=== PATIENT | male | born 1950 | race Caucasian/White ===

== ENCOUNTER → 2016-06-23 | Outpatient (CLI) | payer OTHER ==
[2016-06-23 11:12] LABS: Bilirubin, Delta 0.4 mg/dL (0.0-0.2); Total Bilirubin 0.6 mg/dL (0.2-1.3); Total Protein 7.9 g/dL (6.3-8.2)
== END | disposition home or self-care (01) ==
LOC: LABWHC1 10:41
DX: K75.81 Nonalcoholic steatohepatitis (NASH) (principal)
CPT/HCPCS: 36415; 80076

== ENCOUNTER → 2016-07-27 | Outpatient (CLI) | payer OTHER ==
[2016-07-27 10:07] LABS: Basophils # (A) 0.1 k/uL (0-0.2); Basophils % (A) 1 %; CH 31.2; CHCM 33.3; Eosinophils # (A) 0.4 k/uL (0-0.7); Eosinophils % (A) 5 %; HCT 46.2 % (39.0-53.0); HDW 2.46; HGB 15.1 gm/dL (13.0-17.5); Luc # (Auto) 0.22; Luc % (Auto) 3; Lymphocytes # (A) 2.2 k/uL (1.0-4.8); Lymphocytes % (A) 29 %; MCH 30.7 pg (25.0-35.0); MCHC 32.6 g/dL (31.0-37.0); MCV 94.3 fL (80.0-100.0); Mean Platelet Volume 7.4; Monocytes # (A) 0.6 k/uL (0-1.0); Monocytes % (A) 8 %; Neutrophils # (A) 4.1 k/uL (1.3-7.7); Neutrophils % (A) 54 %; RDW 13.3 % (11.5-15.5); WBC 7.5 k/uL (3.8-10.6); WBC (Perox) 7.54
[2016-07-27 10:28] LABS: Magnesium 2.1 mg/dL (1.6-2.3); Uric Acid 5.4 mg/dL (3.5-8.5)
[2016-07-27 11:58] LABS: Hemoglobin A1C 5.8 % (4.2-6.1)
== END | disposition home or self-care (01) ==
LOC: LABWHC1 09:39
PROVIDERS: ATTEND Internal Medicine
DX: E78.00 Pure hypercholesterolemia, unspecified (principal); I10 Essential (primary) hypertension
CPT/HCPCS: 36415; 80061; 82550; 83036; 83735; 84439; 84443; 84550; 85025

== ENCOUNTER → 2017-01-04 | Outpatient (CLI) | payer OTHER ==
[2017-01-04 09:38] LABS: Bilirubin, Delta 0.2 mg/dL (0.0-0.2); Total Bilirubin 0.5 mg/dL (0.2-1.3); Total Protein 7.9 g/dL (6.3-8.2)
== END | disposition home or self-care (01) ==
LOC: LABWHC1 09:07
DX: K75.81 Nonalcoholic steatohepatitis (NASH) (principal)
CPT/HCPCS: 36415; 80076

== ENCOUNTER → 2017-07-06 | Outpatient (CLI) | payer MEDICARE ==
[2017-07-06 15:31] LABS: Albumin 4.3 g/dL (3.5-5.0); Bilirubin, Delta 0.2 mg/dL (0.0-0.2); Bilirubin,Unconjugated 0.1 mg/dL (0.0-1.1); Total Bilirubin 0.3 mg/dL (0.2-1.3); Total Protein 7.4 g/dL (6.3-8.2)
== END | disposition home or self-care (01) ==
LOC: LABWHC1 14:37
DX: K75.81 Nonalcoholic steatohepatitis (NASH) (principal)
CPT/HCPCS: 36415; 80076

== ENCOUNTER → 2017-08-02 | Outpatient (CLI) | payer MEDICARE ==
[2017-08-02 10:33] LABS: HCT 44.2 % (39.0-53.0); HGB 14.5 gm/dL (13.0-17.5); MCH 30.1 pg (25.0-35.0); MCHC 32.8 g/dL (31.0-37.0); MCV 91.6 fL (80.0-100.0); Platelet Count 233 k/uL (150-450); RBC 4.83 m/uL (4.30-5.90); RDW 13.5 % (11.5-15.5); WBC 7.6 k/uL (3.8-10.6)
[2017-08-02 11:36] LABS: ALT 90 U/L (21-72); AST 60 U/L (17-59); Albumin 4.4 g/dL (3.5-5.0); Alkaline Phosphatase 75 U/L (38-126); Anion Gap 12 mmol/L; Blood Urea Nitrogen 27 mg/dL (9-20); Calcium 9.9 mg/dL (8.4-10.2); Carbon Dioxide 27 mmol/L (22-30); Chloride 101 mmol/L (98-107); Glucose 93 mg/dL (74-99); Potassium 4.8 mmol/L (3.5-5.1); Sodium 140 mmol/L (137-145); Total Bilirubin 0.5 mg/dL (0.2-1.3); Total Protein 7.5 g/dL (6.3-8.2)
== END ==
LOC: LABPAT 10:04
PROVIDERS: ATTEND Podiatrist Foot & Ankle Surgery
DX: Z01.812 Encounter for preprocedural laboratory examination (principal)
CPT/HCPCS: 36415; 80053; 85027

== ENCOUNTER 2017-08-09 12:12 | Day surgery (SDC) | payer MEDICARE ==
[2017-08-03 15:49] VITALS: BMI 29.6
[~2017-08-09 12:12] MED LIST: HYDROmorphone 0.5 MG/0.5 ML SYRINGE IVP PRN; LACTATED RINGERS 1,000 ML IV SCH; MORPHINE SULFATE 4 MG/ML SYRINGE IV PRN; ONDANSETRON 4 MG/2 ML VIAL IVP PRN; Pre Op ABX Message 1 EACH MISC MISCELLANE ONE
[2017-08-09] MEDS ORDERED: LIDOCAINE 1% 20 ML VIAL (10MG/ML) FOR IV START INTRADERMA ONE (12:55)
[2017-08-09 13:04] VITALS: RESP 16; TEMP 97.9
[2017-08-09] MEDS ORDERED: LIDOCAINE 1% INJ 10MG/ML (20 ML MDV) ONE (14:12)
[2017-08-09] MEDS ORDERED: KETAMINE 10 MG/ML 20 ML VIAL ONE (14:12)
[2017-08-09] MEDS ORDERED: fentaNYL (PF) 50 MCG/ML 2 ML AMP ONE (14:12)
[2017-08-09] MEDS ORDERED: PROPOFOL 10 MG/ML 20 ML VIAL IV ONE (14:12)
[2017-08-09] MEDS ORDERED: MIDAZOLAM 2 MG/2 ML VIAL ONE (14:12)
[2017-08-09] MEDS ORDERED: LIDOCAINE 1% (PF) 10 MG/ML (30 ML SDV) SQ ONE ×3 (14:21→14:33)
[2017-08-09] MEDS ORDERED: SODIUM CHLORIDE 0.9% 50 ML with ceFAZolin 2,000 MG IV ONE ×2 (14:34)
--- NOTE | 2017-08-09 14:56 | P.PCN ---
Date of Procedure: 08/09/17 Preoperative Diagnosis: Plantar fasciitis left foot Postoperative Diagnosis: Same Procedure(s) Performed: Endoscopic plantar fasciotomy procedure left foot Operative Findings: Unremarkable Description of Procedure: The patient tolerated the surgery and anesthesia well was taken recovery room in good postoperative condition in good postoperative condition
--- NOTE | 2017-08-09 15:03 | P.OP ---
Date of Procedure: 08/09/17 Preoperative Diagnosis: Plantar fasciitis left foot Postoperative Diagnosis: Same Procedure(s) Performed: Endoscopic plantar fasciotomy procedure left foot Surgeon: Raciel Faye Operative Findings: Unremarkable Description of Procedure: On the date of surgery the patient was taken to the operating room in good condition placed on the operating table in a supine position where an IV was started and adequate IV anesthetic agents were utilized. Anesthesia was then further supplemented with approximately 10 mL of 0.25% plain Marcaine given in an infiltrative block to the patient's left heel. The patient's left foot and ankle were then prepped and draped in the usual aseptic manner. Over heavy web roll padding an ankle tourniquet had been placed above the malleoli of the patient's left ankle area Asians left foot and ankle were then elevated and exsanguinated of blood utilizing an Esmarch bandage and after approximately 1 minutes. A time the ankle tourniquet to the patient's left inflated to approximately 275 mmHg. At this point in time attention was directed to the plantar medial side of the patient's left heel where an approximately 1 cm linear incision was made the incision was placed in line with the medial band of the plantar fascia. The incision was deepened down through the level of the subcutaneous tissue layers all neurovascular structures encountered were identified isolated and were retracted and any bleeding vessels were clamped electrocauterized. Dissection was then carried deep down to level of the medial band of the plantar fascia. Using a fascial elevator the elevator was passed along the inferior surface of the plantar fascia creating a channel for the obturator and cannula complex.'s was then inserted and a lateral exit portal incision was made. Scope was introduced and the medial side and L blade from the lateral side and the medial band of the plantar fascia was severed lesion of this fascial probe was used to ensure that all fibers were severed and when this was seen to be true surgical site was flushed with copious amounts of sterile saline solution the cannula was removed and the skin edges were coaptated and maintained utilizing 4-0 nylon simple interrupted suture Adaptic Kerlix fluffs four-inch conformer and 4 inch Coban was used to form a compression dressing and the ankle tourniquet to the patient's left ankle was deflated adequate hemostatic return was seen in all digits the patient's left foot surgery and anesthesia well was taken to recovery room in good postoperative condition.
[2017-08-09 15:15] VITALS: BP 123/70; PULSE 70
== END 2017-08-09 15:35 | disposition home or self-care (01) ==
LOC: OR 12:12
PROVIDERS: ATTEND Podiatrist Foot & Ankle Surgery
DX: M72.2 Plantar fascial fibromatosis (principal); M77.32 Calcaneal spur, left foot; I44.1 Atrioventricular block, second degree; K82.9 Disease of gallbladder, unspecified; J44.9 Chronic obstructive pulmonary disease, unspecified; G47.33 Obstructive sleep apnea (adult) (pediatric); I10 Essential (primary) hypertension; E78.00 Pure hypercholesterolemia, unspecified; E66.9 Obesity, unspecified; Z68.29 Body mass index [BMI] 29.0-29.9, adult; R60.9 Edema, unspecified; Z95.0 Presence of cardiac pacemaker; Z85.46 Personal history of malignant neoplasm of prostate; Z90.79 Acquired absence of other genital organ(s); Z79.82 Long term (current) use of aspirin; Z79.899 Other long term (current) drug therapy; Z87.891 Personal history of nicotine dependence

== ENCOUNTER → 2018-01-11 | Outpatient (CLI) | payer BC, MEDICARE ==
[2018-01-11 13:08] LABS: HCT 43.8 % (39.0-53.0); HGB 14.4 gm/dL (13.0-17.5); MCH 30.9 pg (25.0-35.0); MCHC 32.9 g/dL (31.0-37.0); MCV 93.9 fL (80.0-100.0); Mean Platelet Volume 6.7; Platelet Count 214 k/uL (150-450); RBC 4.67 m/uL (4.30-5.90); RDW 13.9 % (11.5-15.5)
[2018-01-11 13:23] LABS: ALT 110 U/L (21-72); AST 85 U/L (17-59); Albumin 4.3 g/dL (3.5-5.0); Alkaline Phosphatase 69 U/L (38-126); Anion Gap 7 mmol/L; Blood Urea Nitrogen 18 mg/dL (9-20); Carbon Dioxide 29 mmol/L (22-30); Chloride 103 mmol/L (98-107); Glucose 81 mg/dL (74-99); Potassium 4.8 mmol/L (3.5-5.1); Sodium 139 mmol/L (137-145); Total Bilirubin 0.6 mg/dL (0.2-1.3); Total Protein 7.3 g/dL (6.3-8.2)
== END | disposition home or self-care (01) ==
LOC: LABWHC1 12:38
DX: K75.81 Nonalcoholic steatohepatitis (NASH) (principal)
CPT/HCPCS: 36415; 80053; 85027

== ENCOUNTER → 2018-02-22 | Outpatient (CLI) | payer BC, MEDICARE ==
[2018-02-22 15:47] LABS: Anion Gap 8 mmol/L; Blood Urea Nitrogen 18 mg/dL (9-20); Calcium 10.7 mg/dL (8.4-10.2); Carbon Dioxide 30 mmol/L (22-30); Chloride 103 mmol/L (98-107); Glucose 79 mg/dL (74-99); Potassium 4.8 mmol/L (3.5-5.1); Sodium 141 mmol/L (137-145)
== END | disposition home or self-care (01) ==
LOC: LABWHC1 14:43
PROVIDERS: ATTEND Internal Medicine Cardiovascular Disease
DX: I10 Essential (primary) hypertension (principal)
CPT/HCPCS: 36415; 80048

== ENCOUNTER 2020-01-12 21:43 | Inpatient (IN) | payer BC, MEDICARE ==
[2020-01-12] MEDS ORDERED: ASPIRIN 81 MG PO STA (22:16)
--- NOTE | 2020-01-12 22:19 | ED ---
Chest Pain HPI - General Chief Complaint: Chest Pain Stated Complaint: Chest Pain Time Seen by Provider: 01/12/20 22:09 Source: patient, family Mode of arrival: ambulatory Limitations: no limitations - History of Present Illness Initial Comments: 69-year-old male patient presents to the emergency department today for evaluation of left-sided chest pain. Patient states the pain started around 3:30 this afternoon while he was getting. States that the pain has been constant since its onset. He denies any shortness of breath with this. Denies any dizziness, nausea, vomiting, or sweats. Patient does have a pacemaker and sees Dr. Clark. He is treated for hypertension and high cholesterol. Denies any personal history of MT or family history. Denies any abdominal pain, constipation, or diarrhea. Patient denies any recent rash, fever, chills, cough, back pain, hematuria, dysuria, urinary urgency, urinary frequency, headache, visual changes, or any other complaints. - Related Data Home Medications Medication Instructions Recorded Confirmed Aspirin 325 mg PO DAILY 05/03/16 08/09/17 Furosemide [Lasix] 40 mg PO MOWEFR 05/03/16 08/09/17 Spironolactone [Aldactone] 25 mg PO DAILY 05/03/16 08/09/17 amLODIPine [Norvasc] 5 mg PO DAILY 05/03/16 08/09/17 lisinopriL [Zestril] 20 mg PO DAILY 05/03/16 08/09/17 Calcium/Magnesium/Zinc 1 each PO DAILY 08/03/17 08/09/17 [Kytcnwl-Vwhtvqcbm-Ymwo Tablet] Cholecalciferol [Vitamin D3] 1,000 unit PO DAILY 08/03/17 08/09/17 Flaxseed Oil [[place]-3 Flaxseed Oil] 1,000 mg PO DAILY 08/03/17 08/09/17 Focus Plus Lutein 2 tab PO DAILY 08/03/17 08/09/17 Garlic 1 each PO DAILY 08/03/17 08/09/17 Multivitamins, Thera [Multivitamin 1 tab PO DAILY 08/03/17 08/09/17 (formulary)] Pure Krill 1 tab PO DAILY 08/03/17 08/09/17 Allergies Allergy/AdvReac Type Severity Reaction Status Date / Time No Known Allergies Allergy Verified 01/12/20 21:46 Review of Systems ROS Statement: Those systems with pertinent positive or pertinent negative responses have been documented in the HPI. ROS Other: All systems not noted in ROS Statement are negative. EKG Findings - EKG Comments: EKG Findings:: EKG obtained at 2154 shows atrial sensed ventricular paced rhythm. Ventricular rate is 79, MI interval 182, QRS duration 150, QTC 438, QTC 502. Past Medical History Past Medical History: Atrial Fibrillation, Asthma, Cancer, COPD, Hyperlipidemia, Hypertension, Liver Disease, Prostate Disorder Additional Past Medical History / Comment(s): hx prostate cancer History of Any Multi-Drug Resistant Organisms: None Reported Past Surgical History: Pacemaker, Prostate Surgery, Tonsillectomy Additional Past Surgical History / Comment(s): isidoro cataracts Past Anesthesia/Blood Transfusion Reactions: No Reported Reaction Type of Cardiac Device: Permanent Pacemaker Device Placement Date:: 2012 or 2013 Past Psychological History: No Psychological Hx Reported Smoking Status: Never smoker Past Alcohol Use History: None Reported Past Drug Use History: None Reported - Past Family History Mother Family Medical History: Cancer Additional Family Medical History / Comment(s): breast General Exam Limitations: no limitations General appearance: alert, in no apparent distress, other (This is a well- developed, well-nourished adult male patient in no acute distress. Vital signs upon presentation are temperature 98.1F, pulse 86, respirations 20, blood pressure 144/74, pulse ox 97% on room air.) Eye exam: Present: normal appearance, PERRL, EOMI. Absent: scleral icterus, conjunctival injection, periorbital swelling Respiratory exam: Present: normal lung sounds bilaterally. Absent: respiratory distress, wheezes, rales, rhonchi, stridor Cardiovascular Exam: Present: regular rate, normal rhythm, normal heart sounds. Absent: systolic murmur, diastolic murmur, rubs, gallop, clicks GI/Abdominal exam: Present: soft, normal bowel sounds. Absent: distended, tenderness, guarding, rebound, rigid Neurological exam: Present: alert, oriented X3, CN II-XII intact Psychiatric exam: Present: normal affect, normal mood Skin exam: Present: warm, dry, intact, normal color. Absent: rash Course Vital Signs 01/12/20 21:43 Temperature 98.1 F Pulse Rate 86 Respiratory 20 Rate Blood Pressure 144/74 O2 Sat by Pulse 97 Oximetry Chest Pain MDM - MDM 69-year-old male patient presented to the emergency department today for evaluation of left-sided chest pain since 3:30 this afternoon. Patient does have a pacemaker and is treated for hypertension and hyperlipidemia. Physical examination is unremarkable. Labs reviewed and were unremarkable. Initial troponin is negative. Chest x-ray shows no acute cardiopulmonary process. Patient will be admitted to the hospital for observation, further evaluation by cardiology, and serial troponins. Patient is agreeable with this plan. Disposition Clinical Impression: Chest pain Disposition: ADMITTED IP TO THIS HOSP Condition: Serious Referrals: Jess Chaney MD [Primary Care Provider] - 1-2 days Decision to Admit Reason: Admit from EC Decision Date: 01/12/20 Decision Time: 23:21
[2020-01-12 22:27] LABS: Basophils # (A) 0.1 k/uL (0-0.2); Basophils % (A) 1 %; Eosinophils # (A) 0.3 k/uL (0-0.7); Eosinophils % (A) 4 %; HCT 45.3 % (39.0-53.0); HGB 14.9 gm/dL (13.0-17.5); Lymphocytes # (A) 3.1 k/uL (1.0-4.8); Lymphocytes % (A) 33 %; MCH 30.9 pg (25.0-35.0); MCHC 32.8 g/dL (31.0-37.0); Mean Platelet Volume 6.9; Monocytes # (A) 0.8 k/uL (0-1.0); Monocytes % (A) 9 %; Neutrophils # (A) 4.7 k/uL (1.3-7.7); Neutrophils % (A) 51 %; Platelet Count 212 k/uL (150-450); RBC 4.82 m/uL (4.30-5.90); RDW 13.8 % (11.5-15.5); WBC 9.3 k/uL (3.8-10.6)
[2020-01-12 22:38] LABS: ALT 48 U/L (4-49); AST 45 U/L (17-59); African American GFR (CKD) >90 (>60 ml/min/1.73 sqM); Albumin 4.4 g/dL (3.5-5.0); Alkaline Phosphatase 72 U/L (38-126); Anion Gap 9 mmol/L; Blood Urea Nitrogen 16 mg/dL (9-20); Calcium 9.4 mg/dL (8.4-10.2); Carbon Dioxide 25 mmol/L (22-30); Chloride 104 mmol/L (98-107); Glucose 95 mg/dL (74-99); Magnesium 2.2 mg/dL (1.6-2.3); Non-African American GFR(CKD) >90 (>60 ml/min/1.73 sqM); Potassium 4.2 mmol/L (3.5-5.1); Sodium 138 mmol/L (137-145); Total Bilirubin 0.4 mg/dL (0.2-1.3); Total Protein 7.4 g/dL (6.3-8.2)
[2020-01-12 22:39] LABS: INR 1.1 (<1.2); Partial Thromboplastin Time 25.3 sec (22.0-30.0); Prothrombin Time 11.2 sec (9.0-12.0)
--- NOTE | 2020-01-12 22:45 | XR ---
EXAMINATION TYPE: XR chest 2V DATE OF EXAM: 01/12/2020 COMPARISON: 10/31/2012 HISTORY: Chest pain TECHNIQUE: FINDINGS: Heart and mediastinum are normal. Lungs are clear. Diaphragm is normal. There is left axillary pacema ker. There are chest leads. Bony thorax is intact. IMPRESSION: No active cardiopulmonary disease. Normal heart. No change.
[2020-01-12] MEDS ORDERED: NALOXONE 0.4 MG/ML 1 ML VIAL IV PRN (23:19)
[2020-01-12] MEDS ORDERED: ASPIRIN 325 MG TAB PO STA (23:21)
[2020-01-13] MEDS: ASPIRIN 325 MG TAB PO SCH (08:19)
[2020-01-13] MEDS ORDERED: CAFFEINE CITRATE 60 MG/3 ML VIAL IV PRN (09:37)
[2020-01-13] MEDS ORDERED: REGADENOSON 0.4 MG/5 ML SYRINGE IV ONE (09:37)
[2020-01-13] MEDS ORDERED: AMINOPHYLLINE 500 MG/20 ML VIAL IV PRN (09:37)
--- NOTE | 2020-01-13 09:37 | P.CRDCN ---
History of Present Illness Consult date: 01/13/20 Chief complaint: Chest pain History of present illness: This is a very pleasant 69-year-old gentleman with a past medical history significant for permanent pacemaker presented to the hospital complaining of chest discomfort. He was in his usual state of health when he was sitting with his eating dinner when he started experiencing discomfort in the mid of the chest as a dull kind of discomfort without any radiations to the arm or neck or shoulders and without any associated symptoms of sweating or dizziness or syncope. He decided to come to the emergency department where he was admitted for further evaluation. The EKG showed sinus rhythm. The troponin came in to be unremarkable. The patient is not aware of any prior history of coronary artery disease or coronary revascularization. He never had any heart catheterization nor stress test recently. Currently he is chest pain-free. At this point I am going to rule out severe underlying coronary artery disease by performing a stress test on him and also performing an echocardiogram and further recommendation to follow that. Past Medical History Past Medical History: Atrial Fibrillation, Asthma, Cancer, COPD, Hyperlipidemia, Hypertension, Liver Disease, Prostate Disorder Additional Past Medical History / Comment(s): hx prostate cancer History of Any Multi-Drug Resistant Organisms: None Reported Past Surgical History: Pacemaker, Prostate Surgery, Tonsillectomy Additional Past Surgical History / Comment(s): isidoro cataracts Past Anesthesia/Blood Transfusion Reactions: No Reported Reaction Type of Cardiac Device: Permanent Pacemaker Device Placement Date:: 2012 or 2013 Past Psychological History: No Psychological Hx Reported Smoking Status: Former smoker Past Alcohol Use History: None Reported Additional Past Alcohol Use History / Comment(s): quit smoking 16 yrs ago, smoked for 30 yrs on and off, was up to 3 PPD. Past Drug Use History: None Reported - Past Family History Mother Family Medical History: Cancer Additional Family Medical History / Comment(s): breast Medications and Allergies Home Medications Medication Instructions Recorded Confirmed Type Aspirin 325 mg PO HS 05/03/16 01/13/20 History Furosemide [Lasix] 40 mg PO MOWEFR 05/03/16 01/13/20 History Spironolactone [Aldactone] 25 mg PO HS 05/03/16 01/13/20 History amLODIPine [Norvasc] 5 mg PO DAILY 05/03/16 01/13/20 History lisinopriL [Zestril] 20 mg PO HS 05/03/16 01/13/20 History Calcium/Magnesium/Zinc 1 tab PO HS 08/03/17 01/13/20 History [Fntqwjz-Ofqyghcwy-Kzyu Tablet] Flaxseed Oil [[place]-3 Flaxseed Oil] 1,000 mg PO HS 08/03/17 01/13/20 History Focus Plus Lutein 2 tab PO HS 08/03/17 01/13/20 History Garlic 1 tab PO HS 08/03/17 01/13/20 History Multivitamins, Thera [Multivitamin 1 tab PO HS 08/03/17 01/13/20 History (formulary)] Pure Krill 1 tab PO HS 08/03/17 01/13/20 History Atorvastatin [Lipitor] 40 mg PO HS 01/13/20 01/13/20 History Metoprolol Succinate (ER) [Toprol 50 mg PO HS 01/13/20 01/13/20 History Xl] Allergies Allergy/AdvReac Type Severity Reaction Status Date / Time No Known Allergies Allergy Verified 01/13/20 07:40 Physical Exam Vitals: Vital Signs Temp Pulse Pulse Resp BP BP Pulse Ox 01/13/20 03:00 98 F 81 18 128/78 98 01/13/20 00:00 98 F 73 18 114/72 93 L 01/12/20 23:46 97.8 F 74 18 114/72 97 01/12/20 21:43 98.1 F 86 20 144/74 97 Intake and Output 01/12/20 01/13/20 01/13/20 22:59 06:59 14:59 Intake Total 0 Balance 0 Intake: Oral 0 Other: Voiding Method Toilet # Voids 1 Weight 90.718 kg 90.718 kg - Constitutional General appearance: no acute distress - Respiratory Respiratory: bilateral: CTA - Cardiovascular Rhythm: regular Heart sounds: normal: S1, S2 Results 01/12/20 22:19 01/12/20 22:19 Cardiac Enzymes 01/12/20 01/12/20 01/13/20 Range/Units 22:19 22:19 00:48 AST 45 (17-59) U/L Troponin I <0.012 <0.012 (0.000-0.034) ng/mL 01/13/20 Range/Units 04:13 AST (17-59) U/L Troponin I <0.012 (0.000-0.034) ng/mL Coagulation 01/12/20 Range/Units 22:19 PT 11.2 (9.0-12.0) sec APTT 25.3 (22.0-30.0) sec CBC 01/12/20 Range/Units 22:19 WBC 9.3 (3.8-10.6) k/uL RBC 4.82 (4.30-5.90) m/uL Hgb 14.9 (13.0-17.5) gm/dL Hct 45.3 (39.0-53.0) % Plt Count 212 (150-450) k/uL Comprehensive Metabolic Panel 01/12/20 Range/Units 22:19 Sodium 138 (137-145) mmol/L Potassium 4.2 (3.5-5.1) mmol/L Chloride 104 (98-107) mmol/L Carbon Dioxide 25 (22-30) mmol/L BUN 16 (9-20) mg/dL Creatinine 0.82 (0.66-1.25) mg/dL Glucose 95 (74-99) mg/dL Calcium 9.4 (8.4-10.2) mg/dL AST 45 (17-59) U/L ALT 48 (4-49) U/L Alkaline Phosphatase 72 (38-126) U/L Total Protein 7.4 (6.3-8.2) g/dL Albumin 4.4 (3.5-5.0) g/dL Current Medications Generic Name Dose Route Start Last Admin Trade Name Freq PRN Reason Stop Dose Admin Aspirin 325 mg 01/13/20 09:00 01/13/20 08:19 Aspirin PO 325 mg DAILY JOSEPH Administration Naloxone HCl 0.2 mg 01/12/20 23:19 Narcan IV Q2M PRN Opioid Reversal Intake and Output 01/12/20 01/13/20 01/13/20 22:59 06:59 14:59 Intake Total 0 Balance 0 Intake: Oral 0 Other: Voiding Method Toilet # Voids 1 Weight 90.718 kg 90.718 kg 01/12/20 22:19 01/12/20 22:19 Assessment and Plan Assessment: Assessment #1 atypical chest discomfort #2 permanent pacemaker Plan #1 continue the current medical regimen #2 proceed with a stress test #3 proceed with an echocardiogram #4 follow-up with the patient
--- NOTE | 2020-01-13 12:00 | P.HPIM ---
History of Present Illness H&P Date: 01/13/20 Chief Complaint: Chest pain This is a 69-year-old male patient of Dr. Chaney with past medical history of chronic atrial fibrillation, status post permanent pacemaker, mild intermittent asthma, prostate cancer status post resection only, COPD, hypertension, hyperlipidemia. The patient came in the hospital due to chest pain that started while he was sitting and eating dinner last night. Pain was in the mid chest area was dull type discomfort without radiation, no dizziness, lightheadedness, no sweats. EKG was a sinus rhythm. Troponins have been negative on 3 draws. CBC and CMP unremarkable, lipase 234. Patient was placed on the cardiac observation unit and cardiology consult obtained. Patient is scheduled for stress test and echocardiogram. At the time of evaluation, patient is chest pain-free. Review of Systems Constitutional: Denies anorexia, Denies chills, Denies fatigue, Denies fever, Denies lethargy, Denies malaise, Denies poor appetite, Denies weakness, Denies weight loss Eyes: denies blurred vision, denies pain Ears, nose, mouth and throat: Denies dysphagia, Denies headache, Denies nasal congestion, Denies nasal discharge, Denies sore throat, Denies vertigo Cardiovascular: Denies chest pain, Denies decreased exercise tolerance, Denies dyspnea on exertion, Denies edema, Denies leg edema, Denies lightheadedness, Denies shortness of breath, Denies syncope Respiratory: Denies cough, Denies cough with sputum, Denies dyspnea, Denies excessive sputum, Denies hemoptysis, Denies home oxygen, Denies respiratory infections, Denies wheezing Gastrointestinal: Denies abdominal pain, Denies diarrhea, Denies loss of appetite, Denies melena, Denies nausea, Denies vomiting Genitourinary: Denies dysuria, Denies urinary retention Musculoskeletal: Denies frequent falls, Denies gait dysfunction, Denies muscle weakness, Denies myalgias Integumentary: Denies pruritus, Denies rash, Denies wounds Neurological: Denies change in mentation, Denies confusion, Denies gait dysfunction, Denies numbness, Denies seizures, Denies weakness Psychiatric: Denies anxiety, Denies depression Endocrine: Denies fatigue, Denies weight change Past Medical History Past Medical History: Atrial Fibrillation, Asthma, Cancer, COPD, Hyperlipidemia, Hypertension, Liver Disease, Prostate Disorder Additional Past Medical History / Comment(s): hx prostate cancer History of Any Multi-Drug Resistant Organisms: None Reported Past Surgical History: Pacemaker, Prostate Surgery, Tonsillectomy Additional Past Surgical History / Comment(s): isidoro cataracts, last colonoscopy was 3 years ago reported as normal by patient. Past Anesthesia/Blood Transfusion Reactions: No Reported Reaction Type of Cardiac Device: Permanent Pacemaker Device Placement Date:: 2012 or 2013 Past Psychological History: No Psychological Hx Reported Smoking Status: Former smoker Past Alcohol Use History: None Reported Additional Past Alcohol Use History / Comment(s): quit smoking 16 yrs ago, smoked for 30 yrs on and off, was up to 3 PPD. Patient does have history of alcohol abuse drinking 6 pack per day but has had no alcohol for the past 5 years. He denies any marijuana or street drug use. He lives at home with his . Past Drug Use History: None Reported - Past Family History Mother Family Medical History: Cancer Additional Family Medical History / Comment(s): Mother at age 84 from old age with history of breast cancer. Father Additional Family Medical History / Comment(s): Father at age 71 from old age. Patient has 2 brothers and 1 sister with no major medical problems. Patient has 3 children with no major medical problems. Medications and Allergies Home Medications Medication Instructions Recorded Confirmed Type Aspirin 325 mg PO HS 05/03/16 01/13/20 History Furosemide [Lasix] 40 mg PO MOWEFR 05/03/16 01/13/20 History Spironolactone [Aldactone] 25 mg PO HS 05/03/16 01/13/20 History lisinopriL [Zestril] 20 mg PO HS 05/03/16 01/13/20 History Calcium/Magnesium/Zinc 1 tab PO HS 08/03/17 01/13/20 History [Zfmbcia-Eimotcldq-Nfdq Tablet] Flaxseed Oil [[place]-3 Flaxseed Oil] 1,000 mg PO HS 08/03/17 01/13/20 History Focus Plus Lutein 2 tab PO HS 08/03/17 01/13/20 History Garlic 1 tab PO HS 08/03/17 01/13/20 History Multivitamins, Thera [Multivitamin 1 tab PO HS 08/03/17 01/13/20 History (formulary)] Pure Krill 1 tab PO HS 08/03/17 01/13/20 History Atorvastatin [Lipitor] 40 mg PO HS 01/13/20 01/13/20 History Metoprolol Succinate (ER) [Toprol 50 mg PO HS 01/13/20 01/13/20 History XL] Allergies Allergy/AdvReac Type Severity Reaction Status Date / Time No Known Allergies Allergy Verified 01/13/20 07:40 Physical Exam Vitals: Vital Signs Temp Pulse Pulse Resp BP BP Pulse Ox 01/13/20 03:00 98 F 81 18 128/78 98 01/13/20 00:00 98 F 73 18 114/72 93 L 01/12/20 23:46 97.8 F 74 18 114/72 97 01/12/20 21:43 98.1 F 86 20 144/74 97 Intake and Output 01/12/20 01/13/20 01/13/20 22:59 06:59 14:59 Intake Total 0 Balance 0 Intake: Oral 0 Other: Voiding Method Toilet # Voids 1 Weight 90.718 kg 90.718 kg Physical Examination Gen: This is a 69-year-old male. He is resting in bed appears to be comfortable and in no acute distress. HEENT: Head is atraumatic, normocephalic. Pupils equal, round. Sclerae is anicteric. NECK: Supple. No JVD. No lymphadenopathy. No thyromegaly. LUNGS: Clear to auscultation. No wheezes or rhonchi. No intercostal retractions. HEART: Regular rate and rhythm. No murmur. ABDOMEN: Soft. Bowel sounds are present. No masses. No tenderness. EXTREMITIES: No pedal edema. No calf tenderness. NEUROLOGICAL: Patient is awake, alert and oriented x3. Cranial nerves 2 through 12 are grossly intact. Results CBC & Chem 7: 01/12/20 22:19 01/12/20 22:19 Thrombosis Risk Factor Assmnt - DVT/VTE Prophylaxis DVT/VTE Prophylaxis: Mechanical Prophylaxis ordered Assessment and Plan Plan: 1. Chest pain with normal troponins, acute coronary syndrome ruled out. Stress test and echocardiogram. Cardiology consult appreciated. Continue aspirin, Lipitor, Toprol-XL. 2. Chronic atrial fibrillation. Continue Toprol-XL 3. Pacemaker. 4. Mild intermittent asthma, stable without exacerbation. 5. Hypertension. Continue lisinopril 20 mg at bedtime, Toprol-XL, spironolactone 25 mg at bedtime. 6. Hyperlipidemia. Continue Lipitor. 7. History of prostate cancer status post resection. 8. Remote history of tobacco use. 9. Remote history of alcohol abuse. 10. DVT prophylaxis. Early ambulation. Patient placed on the observation unit. Discharge plan: Home Impression and plan of care have been directed as dictated by the signing physician. Eryn Lan nurse practitioner acting as scribe for signing physician.
--- NOTE | 2020-01-13 14:00 | NM ---
EXAMINATION TYPE: NM stress lexiscan cardiolite DATE OF EXAM: 01/13/2020 COMPARISON: 12/26/2013 HISTORY: 69-year-old male with chest pain TECHNIQUE: After the intravenous administration of 9.4 mCi Tc 99m Sestamibi - Cardiolite resting SPE CT images acquired 45 minutes post injection. The patient received 0.4mg Lexiscan, 25.3 mCi Tc 99m Sestamibi - Stress images obtained [address] injection FINDINGS: Review of stress and rest SPECT images demonstrates a small fixed perfusion defect at the cardiac ape x. There is also subtle decrease in perfusion on the stress images along the mid inferoseptal wall. F inding is not corroborated on the polar maps. Gated analysis shows an estimated left ventricular ejec tion fraction of 59 %. TID is calculated as 0.96, within normal limits. IMPRESSION: 1. Small fixed defect at the cardiac apex could represent apical thinning or an area of old infarct. 2. Subtle reversibility difficult to exclude along the mid inferoseptal wall. This is an equivocal fi nding as there is no corroboration on the polar maps.
--- NOTE | 2020-01-13 18:00 | ECHOF ---
Referral Reason:CP MEASUREMENTS -------- HEIGHT: 172.7 cm WEIGHT: 90.7 kg BP: RVIDd: 3.3 cm (< 3.3) IVSd: 1.3 cm (0.6 - 1.1) LVIDd: 4.7 cm (3.9 - 5.3) LVPWd: 1.5 cm (0.6 - 1.1) EDV(Teich): 103 ml IVSs: 1.6 cm LVIDs: 3.4 cm LVPWs: 1.5 cm %IVS Thck: 26 % ESV(Teich): 46 ml EF(Teich): 55 % %FS: 29 % SV(Teich): 57 ml LA Diam: 3.7 cm (2.7 - 3.8) LALs A4C: 4.6 cm LAAs A4C: 13.5 cm LAESV A-L A4C: 34 ml LAESV MOD A4C: 33 ml LALs A2C: 5.0 cm LAAs A2C: 12.2 cm LAESV A-L A2C: 25 ml LAESV MOD A2C: 24 ml LAESV(A-L): 30 ml LAESV Index (A-L): 14.77 ml/m Ao Diam: 3.5 cm (2.0 - 3.7) AV Cusp: 2.0 cm (1.5 - 2.6) MV EXCURSION: 19.912 mm (> 18.000) MV EF SLOPE: 83 mm/s (70 - 150) EPSS: 0.5 cm MV E Sherwin: 0.60 m/s MV DecT: 175 ms MV Dec [place]: 3.4 m/s MV A Sherwin: 0.81 m/s MV E/A Ratio: 0.74 MV PHT: 51 ms LVOT Vmax: 0.24 m/s LVOT maxP.22 mmHg AV Vmax: 1.52 m/s AV maxP.26 mmHg AV Vmax: 1.48 m/s AV Vmean: 0.98 m/s AV maxP.79 mmHg AV meanP.39 mmHg AV Env.Ti: 304 ms AV VTI: 29.9 cm TR Vmax: 1.64 m/s TR maxP.73 mmHg RAP: 5.00 mmHg RVSP: 15.73 mmHg FINDINGS -------- Paced rhythm. This was a techncally difficult study with suboptimal views, , Lumason utilized for enhancement of im ages. The left ventricular size is normal. There is mild concentric left ventricular hypertrophy. Overa ll left ventricular systolic function is mildly impaired with, an EF between 45 - 50 %. The right ventricle is normal in size. The left atrial size is normal. Normal LA size by volume 22+/-6 ml/m2. The right atrial size is normal. 5.0mg OF Lumason UTLIZED: 2 OR MORE WALL SEGMENTS NOT VISUALIZED. There is mild aortic valve sclerosis. There is no evidence of aortic regurgitation. Mild mitral regurgitation is present. Mild tricuspid regurgitation present. The pulmonic valve was not well visualized. The aortic root size is normal. There is a trivial pericardial effusion present. CONCLUSIONS -------- 1. Paced rhythm. 2. The left ventricular size is normal. 3. There is mild concentric left ventricular hypertrophy. 4. The right ventricle is normal in size. 5. The left atrial size is normal. 6. Normal LA size by volume 22+/-6 ml/m2. 7. The right atrial size is normal. 8. 5.0mg OF Lumason UTLIZED: 2 OR MORE WALL SEGMENTS NOT VISUALIZED. 9. There is mild aortic valve sclerosis. 10. Mild mitral regurgitation is present. 11. Mild tricuspid regurgitation present. 12. The pulmonic valve was not well visualized. 13. There is a trivial pericardial effusion present. MACHINE OPERATIONS SUPERVISOR: Lupe Sauer RDCS
[2020-01-13] MEDS: METOPROLOL SUCCINATE (ER) 50 MG TAB.ER.24H PO SCH (20:48)
[2020-01-13] MEDS: ATORVASTATIN 40 MG TAB PO SCH (20:48)
[2020-01-13] MEDS: SPIRONOLACTONE 25 MG TAB PO SCH (20:48)
[2020-01-13] MEDS: lisinopriL 20 MG TAB PO SCH (20:49)
[2020-01-14] MEDS: ASPIRIN 325 MG TAB PO SCH (08:13)
[2020-01-14] MEDS ORDERED: VERAPAMIL 2.5 MG/ML 2 ML AMP ONE (08:26)
[2020-01-14] MEDS ORDERED: fentaNYL (PF) 50 MCG/ML 2 ML AMP ONE (08:27)
[2020-01-14] MEDS ORDERED: LIDOCAINE 1% INJ 10MG/ML (20 ML MDV) ONE (08:27)
[2020-01-14] MEDS ORDERED: IV FLUID CONTINUATION 1,000 ML IV ONE (08:31)
[2020-01-14] MEDS ORDERED: MIDAZOLAM 2 MG/2 ML VIAL IVP ONE (08:33)
[2020-01-14] MEDS ORDERED: LIDOCAINE 1% INJ 10MG/ML (20 ML MDV) SQ ONE (08:33)
[2020-01-14] MEDS ORDERED: fentaNYL (PF) 50 MCG/ML 2 ML AMP IVP ONE (08:33)
[2020-01-14] MEDS ORDERED: VERAPAMIL SYRINGE (5 MG/10 ML) INTRAARTER ONE (08:36)
[2020-01-14] MEDS ORDERED: HEPARIN SODIUM 1,000 UN/ML (10ML VL) ONE (08:38)
[2020-01-14] MEDS ORDERED: HEPARIN SODIUM 1,000 UN/ML (10ML VL) IV ONE (08:42)
[2020-01-14] MEDS ORDERED: CLOPIDOGREL 75 MG TAB ONE (08:52)
[2020-01-14] MEDS ORDERED: CLOPIDOGREL 75 MG TAB PO ONE (08:53)
[2020-01-14] MEDS ORDERED: NITROGLYCERIN 1000MCG/10ML SYRINGE INTRACORON ONE (08:54)
[2020-01-14] MEDS ORDERED: IOPAMIDOL-370 125ML BTL INJ ONE (08:57)
[2020-01-14] MEDS ORDERED: MAG HYDROX/AL HYDROX/SIMETH 30 ML CUP PO PRN (09:03)
[2020-01-14] MEDS ORDERED: ZOLPIDEM 5 MG TAB PO PRN (09:03)
[2020-01-14] MEDS ORDERED: RX INFO: IV CONTRAST WAS GIVEN 1 EACH MISC MISCELLANE PRN (09:03)
[2020-01-14] MEDS ORDERED: NITROGLYCERIN SL TABS 0.4 MG TAB SUBLINGUAL PRN (09:03)
[2020-01-14] MEDS ORDERED: ATROPINE SULFATE 0.1 MG/ML 10ML SYRINGE IV PRN (09:03)
[2020-01-14] MEDS ORDERED: SODIUM CHLORIDE 0.9% 1,000 ML IV SCH (09:15)
--- NOTE | 2020-01-14 09:27 | EST ---
EXERCISE STRESS AGE: 69 SEX: M HT: 5'8" WT: 200 lbs. PROTOCOL: Lexiscan Cardiolite STAGE: DURATION OF EXERCISE: HEART RATE REST: 66 BLOOD PRESSURE REST: 114/65 MAXIMUM HEART RATE ACHIEVED: 77 MAXIMUM BLOOD PRESSURE: 113/64 85% MPHR: 129 100% MPHR: 152 METS: INDICATIONS: Chest pain. CLINICAL INFORMATION: STRESS DATA: Heart rate 66, pressure 114/65 mmHg. Baseline EKG showed sinus mechanism. Lexiscan 0.4 mg was given over 15 seconds per protocol. Max heart rate was 77 beats per minute. Maximum pressure was mmHg. Clinically the patient did not have any symptoms and the EKG did not show any significant ST or T-wave abnormalities concerning for ischemia. CONCLUSION: 1. Nondiagnostic electrocardiogram stress testing in response to Lexiscan. 2. Please follow up on the Cardiolite portion on separate report from Radiology Department. MMODL / IJN: [id number] /
--- NOTE | 2020-01-14 09:57 | CC ---
CARDIAC CATHETERIZATION REPORT DATE OF SERVICE: January 12, 2020 PERFORMING PHYSICIAN: Scott Orellana MD. PROCEDURE PERFORMED: 1. Selective right and left coronary angiogram. 2. Left heart catheterization. 3. Successful stenting of the mid left circumflex using 2.5 x 15 mm Xience SHENA with an excellent angiographic result and reduction of stenosis from 80% to 0%. INDICATION: This is a 69-year-old gentleman who sees Dr. Burris in the office as an outpatient who has permanent pacemaker, who was experiencing symptoms of chest discomfort. He was admitted to the hospital and ruled out for acute coronary event. He underwent myocardial perfusion imaging stress test and that revealed reversible defect and because of that, a heart catheterization was advised. APPROACH: Right radial artery. COMPLICATION: None. LEVEL OF SEDATION: Moderate with sedation length of 26 minutes. PROCEDURE DESCRIPTION: After obtaining an informed consent, the patient was brought to the cardiac laboratory specialist. The right radial artery was cannulated using micropuncture technique, the micropuncture wire passed easily. Then I placed a 6-Pashto sheath. I gave the patient after that 2 mg of verapamil IA and 10,000 units of heparin IV. Selective right and left coronary angiogram performed with JR4 and JL3.5 catheters. Left heart catheterization was performed using a pigtail catheter. After that, I did intervene on the left circumflex. Please see a separate paragraph for that. SELECTIVE CORONARY ANGIOGRAM: 1. The right coronary artery is a large caliber vessel, it is a dominant vessel. The RCA has intermediate disease in the proximal to midportion. Then distally bifurcates into PDA and PLV branches both appeared to be angiographically normal. 2. The left main is angiographically normal. It bifurcates into LCX and LAD. 3. The LCX is a large caliber vessel. It is a nondominant vessel. The proximal left circumflex appeared to be angiographically normal. It gives rise into a large OM branch which has mild disease only. The mid left circumflex has a lesion appeared to be in the range of 70% to 80%. The left circumflex distally appeared to be angiographically normal. 4. The LAD is calcified with mild disease only. The LAD gives rise into multiple small diagonal branches. HEMODYNAMICS: LVEDP was 6 mmHg without significant gradient across aortic valve. PCI OF THE LEFT CIRCUMFLEX: Anticoagulation was achieved with heparin which was given at the beginning of the procedure with ACT checked before we advance the wire. After that, I did engage the left main using a 3.5 guide. I did wire the left circumflex using a run-through wire. After that I did balloon angioplasty and did direct stenting of the left circumflex using 2.5 x 12 x 15 mm Xience SHENA where the stent was positioned under fluoroscopy guidance and deployed under 12 atmospheres for 20 seconds with the following angiogram showing excellent angiographic results and the procedure was completed without any complication. CONCLUSION: 1. Chest discomfort concerning for severe underlying coronary artery disease. Myocardial perfusion imaging stress test was performed and came into be concerning for reversible defect. 2. Severe disease involving the mid left circumflex. I did perform successful stenting of the left circumflex using drug-eluting stent. 3. Mild disease involving the left anterior descending artery. 4. Intermediate disease involving the proximal to mid right coronary artery. POSTPROCEDURE MANAGEMENT: 1. Dual anti-platelet therapy. 2. Risk factor modifications. 3. Follow up with the patient. MMODL / IJN: [id number] /
--- NOTE | 2020-01-14 11:38 | P.PN ---
Progress Note - Text Progress Note Date: 01/14/20 This is a very pleasant 69-year-old gentleman who was admitted to the hospital yesterday with a chest discomfort and ruled out for acute coronary event. He underwent myocardial perfusion imaging stress test and that came in to be concerning for severe underlying coronary artery disease. I had a long discussion with the patient in the morning regarding the next step and I advised the patient to undergo a heart catheterization for further clarification. The procedure in details was explained to the patient and he is in full understanding. I am going to proceed with a heart catheterization from right radial approach
--- NOTE | 2020-01-14 13:31 | P.PN ---
Subjective Progress Note Date: 01/14/20 This is a 69-year-old male patient of Dr. Chaney with past medical history of chronic atrial fibrillation, status post permanent pacemaker, mild intermittent asthma, prostate cancer status post resection only, COPD, hypertension, hyperlipidemia. The patient came in the hospital due to chest pain that started while he was sitting and eating dinner last night. Pain was in the mid chest area was dull type discomfort without radiation, no dizziness, lightheadedness, no sweats. EKG was a sinus rhythm. Troponins have been negative on 3 draws. CBC and CMP unremarkable, lipase 234. Patient was placed on the cardiac observation unit and cardiology consult obtained. Patient is scheduled for stress test and echocardiogram. At the time of evaluation, patient is chest pain-free. Lexiscan Cardiolite stress test revealed small fixed defect in the cardiac apex could represent apical thinning or area of old infarct. Subtle reversibility difficult to exclude along the mid inferior septal wall. This is an equivocal finding as there is no corroboration on the prior maps. Echocardiogram reveals EF of 45-50%, mild concentric left hypertrophy, mild mitral regurgitation, mild tricuspid regurgitation. Trivial pericardial effusion. 01/13: Patient underwent cardiac catheterization with Dr. Orellana the revealed severe disease involving the mid left circumflex status post stenting with drug- eluting stent. Mild disease involving the LAD. Intermediate disease involving the proximal to mid RCA. Patient has been started on Plavix. Patient has been afebrile, heart rate 76, blood pressure 122/77, pulse ox 96% on room air. Patient states he is feeling well today does not have any chest pain. Patient is seen after procedure sitting up in recliner. Patient's and daughter are at bedside. They are concerned about dementia which will be further worked up in the office. Daughter is planning to attend doctor's visits and become more involved in his medical care. Patient asked about eliquis and he apparently took one month of eliquis and then did not have this refilled. We will not start patient on eliquis at this point and further review documentation. Patient follows with Dr. Clark in the office and he states he just saw him last month. Patient will be monitored overnight and plan for discharge home tomorrow. Objective - Vital Signs Vital signs: Vital Signs Temp 97.6 F 01/14/20 09:30 Pulse 70 01/14/20 10:30 Resp 18 01/14/20 10:30 BP 112/70 01/14/20 10:30 Pulse Ox 96 01/14/20 10:30 Intake & Output 01/13/20 01/14/20 01/14/20 18:59 06:59 18:59 Intake Total 1080 450 50 Output Total 500 Balance 580 450 50 Weight 90.72 kg Intake: IV 50 Oral 1080 450 0 Output: Urine 500 Other: Voiding Method Toilet Toilet Toilet # Voids 2 - Exam Review of Systems Constitutional: Denies anorexia, Denies chills, Denies fatigue, Denies fever, Denies lethargy, Denies malaise, Denies poor appetite, Denies weakness, Denies weight loss Eyes: denies blurred vision, denies pain Ears, nose, mouth and throat: Denies dysphagia, Denies headache, Denies nasal congestion, Denies nasal discharge, Denies sore throat, Denies vertigo Cardiovascular: Denies chest pain, Denies decreased exercise tolerance, Denies dyspnea on exertion, Denies edema, Denies leg edema, Denies lightheadedness, Denies shortness of breath, Denies syncope Respiratory: Denies cough, Denies cough with sputum, Denies dyspnea, Denies excessive sputum, Denies hemoptysis, Denies home oxygen, Denies respiratory infections, Denies wheezing Gastrointestinal: Denies abdominal pain, Denies diarrhea, Denies loss of appetite, Denies melena, Denies nausea, Denies vomiting Genitourinary: Denies dysuria, Denies urinary retention Musculoskeletal: Denies frequent falls, Denies gait dysfunction, Denies muscle weakness, Denies myalgias Integumentary: Denies pruritus, Denies rash, Denies wounds Neurological: Denies change in mentation, Denies confusion, Denies gait dysfun ction, Denies numbness, Denies seizures, Denies weakness Psychiatric: Denies anxiety, Denies depression Endocrine: Denies fatigue Physical Examination Gen: This is a 69-year-old male. He is resting in bed appears to be comfortable and in no acute distress. HEENT: Head is atraumatic, normocephalic. Pupils equal, round. Sclerae is anicteric. NECK: Supple. No JVD. No lymphadenopathy. No thyromegaly. LUNGS: Clear to auscultation. No wheezes or rhonchi. No intercostal retractions. HEART: Regular rate and rhythm. No murmur. ABDOMEN: Soft. Bowel sounds are present. No masses. No tenderness. EXTREMITIES: No pedal edema. No calf tenderness. Dorsalis pedis +2 bilaterally. Tri-Band and placed to the right wrist. NEUROLOGICAL: Patient is awake, alert and oriented x3. Cranial nerves 2 through 12 are grossly intact. - Labs CBC & Chem 7: 01/12/20 22:19 01/12/20 22:19 Assessment and Plan Plan: 1. Chest pain with normal troponins secondary to coronary artery disease, acute coronary syndrome ruled out. Stress test and echocardiogram as above. Cardiology consult appreciated. Patient is status post heart catheterization and stenting of the left circumflex. Continue Plavix, aspirin, Lipitor, Toprol- XL. 2. Chronic atrial fibrillation. Continue Toprol-XL 3. Pacemaker. 4. Mild intermittent asthma, stable without exacerbation. 5. Hypertension. Continue lisinopril 20 mg at bedtime, Toprol-XL, spironolacto ne 25 mg at bedtime. 6. Hyperlipidemia. Continue Lipitor. 7. History of prostate cancer status post resection. 8. Remote history of tobacco use. 9. Remote history of alcohol abuse. 10. DVT prophylaxis. Early ambulation. Discharge plan: Home on Monday Impression and plan of care have been directed as dictated by the signing physician. Eryn Lan nurse practitioner acting as scribe for signing physician.
[2020-01-14 13:32] VITALS: BMI 30.4
[2020-01-14] MEDS: SPIRONOLACTONE 25 MG TAB PO SCH (20:57)
[2020-01-14] MEDS: lisinopriL 20 MG TAB PO SCH (20:57)
[2020-01-14] MEDS: METOPROLOL SUCCINATE (ER) 50 MG TAB.ER.24H PO SCH (20:57)
[2020-01-14] MEDS: ATORVASTATIN 40 MG TAB PO SCH (20:57)
[2020-01-15 01:30] VITALS: RESP 18
[2020-01-15 08:09] VITALS: PULSE 83
[2020-01-15 08:17] LABS: African American GFR (CKD) >90 (>60 ml/min/1.73 sqM); Non-African American GFR(CKD) 89 (>60 ml/min/1.73 sqM)
[2020-01-15] MEDS ORDERED: CLOPIDOGREL 75 MG TAB PO SCH (09:00)
[2020-01-15] MEDS: ASPIRIN 325 MG TAB PO SCH (09:17)
--- NOTE | 2020-01-15 09:47 | P.PN ---
Subjective Progress Note Date: 01/15/20 Principal diagnosis: Chest pain This is a 69-year-old gentleman with history of permanent pacemaker was admitted to the hospital with chest discomfort and ruled out for acute coronary event. Myocardial perfusion imaging stress test was performed and came in to be abnormal was evidence of reversible defect. Subsequently heart catheterization was done and revealed severe disease involving the left circumflex which was a stented. The patient was seen today. He is is symptomatically from a cardiac vascular standpoint overview. He would like to go home. He will be going home on dual antiplatelet therapy and he will follow-up with Dr. Burris Objective - Vital Signs Vital signs: Vital Signs Temp 98.7 F 01/15/20 03:00 Pulse 83 01/15/20 03:00 Resp 18 01/15/20 03:00 BP 122/78 01/15/20 03:00 Pulse Ox 97 01/15/20 03:00 Intake & Output 01/14/20 01/15/20 01/15/20 18:59 06:59 18:59 Intake Total 905 450 Balance 905 450 Weight 90.72 kg Intake: IV 50 Intake, IV Titration 375 Amount Sodium Chloride 0.9% 1, 375 000 ml @ 75 mls/hr IV . [id number] [facility] Rx#:[id number] Oral 480 450 Other: Voiding Method Toilet Toilet # Voids 0 1 - Constitutional General appearance: Present: no acute distress - Respiratory Respiratory: bilateral: CTA - Cardiovascular Rhythm: regular Heart sounds: normal: S1, S2 - Labs CBC & Chem 7: 01/12/20 22:19 01/15/20 07:14 Assessment and Plan Assessment: Assessment #1 CAD and status post PCI of the LCx Plan Continue the current medical regimen including dual antiplatelet therapy The patient can be discharged home
[2020-01-15 10:36] VITALS: BP 126/70; TEMP 98.1
--- NOTE | 2020-01-15 13:31 | P.DS ---
Providers Date of admission: 01/15/20 09:51 Expected date of discharge: 01/15/20 Attending physician: Jess Chaney Consults: 01/12/20 23:19 Consult Physician Routine Consulting Provider: Katy Clark Consult Reason/Comments: Chest Pain Do you want consulting provider notified?: Yes 01/14/20 09:03 Consult Physician Routine Consulting Provider: [facility] Consult Reason/Comments: Post Interventional patient Do you want consulting provider notified?: Already Contacted Primary care physician: Jess Chaney Hospital Course: This is a 69-year-old male patient of Dr. Chaney with past medical history of chronic atrial fibrillation, status post permanent pacemaker, mild intermittent asthma, prostate cancer status post resection only, COPD, hypertension, hyperlipidemia. The patient came in the hospital due to chest pain that started while he was sitting and eating dinner last night. Pain was in the mid chest area was dull type discomfort without radiation, no dizziness, lightheadedness, no sweats. EKG was a sinus rhythm. Troponins have been negative on 3 draws. CBC and CMP unremarkable, lipase 234. Patient was placed on the cardiac observation unit and cardiology consult obtained. Patient is scheduled for stress test and echocardiogram. At the time of evaluation, patient is chest pain-free. Lexiscan Cardiolite stress test revealed small fixed defect in the cardiac apex could represent apical thinning or area of old infarct. Subtle reversibility difficult to exclude along the mid inferior septal wall. This is an equivocal f inding as there is no corroboration on the prior maps. Echocardiogram reveals EF of 45-50%, mild concentric left hypertrophy, mild mitral regurgitation, mild tricuspid regurgitation. Trivial pericardial effusion. 01/13: Patient underwent cardiac catheterization with Dr. Orellana the revealed severe disease involving the mid left circumflex status post stenting with drug- eluting stent. Mild disease involving the LAD. Intermediate disease involving the proximal to mid RCA. Patient has been started on Plavix. Patient has been afebrile, heart rate 76, blood pressure 122/77, pulse ox 96% on room air. Patient states he is feeling well today does not have any chest pain. Patient is seen after procedure sitting up in recliner. Patient's and daughter are at bedside. They are concerned about dementia which will be further worked up in the office. Daughter is planning to attend doctor's visits and become more involved in his medical care. Patient asked about eliquis and he apparently took one month of eliquis and then did not have this refilled. We will not start patient on eliquis at this point and further review documentation. Patient follows with Dr. Clark in the office and he states he just saw him last month. Patient will be monitored overnight and plan for discharge home tomorrow. 01/14: Patient has been seen by Dr. Orellana this morning cleared for discharge with plan for follow-up with Dr. Burris. Patient has been afebrile, heart rate 83, blood pressure 126/70, pulse ox 95% on room air. Repeat creatinine 0.88. Patient will be discharged home today in stable condition. Discharge diagnoses: 1. Chest pain with normal troponins secondary to coronary artery disease, acute coronary syndrome ruled out. Status post heart catheterization and stenting of the left circumflex. 2. Chronic atrial fibrillation. 3. Pacemaker. 4. Mild intermittent asthma, stable without exacerbation. 5. Hypertension. 6. Hyperlipidemia. 7. History of prostate cancer status post resection. 8. Remote history of tobacco use. 9. Remote history of alcohol abuse. 10. Possible early dementia. Discharge plan: Home Impression and plan of care have been directed as dictated by the signing physician. Eryn Lan nurse practitioner acting as scribe for signing physician. Patient Condition at Discharge: Good Plan - Discharge Summary Discharge Rx Participant: Yes New Discharge Prescriptions: New Aspirin EC [Ecotrin Low Dose] 81 mg PO DAILY #30 tablet. Clopidogrel [Plavix] 75 mg PO DAILY #30 tab Continue lisinopriL [Zestril] 20 mg PO HS Spironolactone [Aldactone] 25 mg PO HS Furosemide [Lasix] 40 mg PO MOWEFR Pure Krill 1 tab PO HS Calcium/Magnesium/Zinc [Mqespsm-Pwcpnlspn-Pnui Tablet] 1 tab PO HS Garlic 1 tab PO HS Focus Plus Lutein 2 tab PO HS Multivitamins, Thera [Multivitamin (formulary)] 1 tab PO HS Flaxseed Oil [Cherokee-3 Flaxseed Oil] 1,000 mg PO HS Atorvastatin [Lipitor] 40 mg PO HS Metoprolol Succinate (ER) [Toprol XL] 50 mg PO HS Discontinued Aspirin 325 mg PO HS Discharge Medication List Furosemide [Lasix] 40 mg PO MOWEFR 12/06/16 [History] Spironolactone [Aldactone] 25 mg PO HS 05/03/16 [History] lisinopriL [Zestril] 20 mg PO HS 05/03/16 [History] Calcium/Magnesium/Zinc [Nciwbcq-Zfkwrlbvf-Vfpb Tablet] 1 tab PO HS 08/03/17 [History] Flaxseed Oil [Cherokee-3 Flaxseed Oil] 1,000 mg PO HS 08/03/17 [History] Focus Plus Lutein 2 tab PO HS 08/03/17 [History] Garlic 1 tab PO HS 08/03/17 [History] Multivitamins, Thera [Multivitamin (formulary)] 1 tab PO HS 08/03/17 [History] Pure Krill 1 tab PO HS 08/03/17 [History] Atorvastatin [Lipitor] 40 mg PO HS 01/13/20 [History] Metoprolol Succinate (ER) [Toprol XL] 50 mg PO HS 01/13/20 [History] Aspirin EC [Ecotrin Low Dose] 81 mg PO DAILY #30 tablet.dr 01/15/20 [Rx] Clopidogrel [Plavix] 75 mg PO DAILY #30 tab 01/15/20 [Rx] Follow up Appointment(s)/Referral(s): Jess Chaney MD [Primary Care Provider] - 1 Week Luc Burris MD [STAFF PHYSICIAN] - 1 Week Discharge Disposition: HOME SELF-CARE
== END 2020-01-15 14:30 | disposition home or self-care (01) | DRG 247 ==
LOC: EC 21:43 → 3NCARDOBS 23:22 → OBSVTOIN 01-15 09:51
PROVIDERS: ADMIT Internal Medicine; ATTEND Internal Medicine
PROC: 4A023N7 Measurement of Cardiac Sampling and Pressure, Left Heart, Percutaneous Approach (ICD-10-PCS; principal; 2020-01-14 09:00)
PROC: B2111ZZ Fluoroscopy of Multiple Coronary Arteries using Low Osmolar Contrast (ICD-10-PCS; principal; 2020-01-14 09:00)
PROC: 027034Z Dilation of Coronary Artery, One Artery with Drug-eluting Intraluminal Device, Percutaneous Approach (ICD-10-PCS; principal; 2020-01-14 09:00)
DX: I25.10 Atherosclerotic heart disease of native coronary artery without angina pectoris (principal); I48.20 Chronic atrial fibrillation, unspecified; I11.9 Hypertensive heart disease without heart failure; F03.90 Unspecified dementia, unspecified severity, without behavioral disturbance, psychotic disturbance, mood disturbance, and anxiety; J44.9 Chronic obstructive pulmonary disease, unspecified; E78.00 Pure hypercholesterolemia, unspecified; E78.5 Hyperlipidemia, unspecified; J45.20 Mild intermittent asthma, uncomplicated; I08.1 Rheumatic disorders of both mitral and tricuspid valves; Z79.82 Long term (current) use of aspirin; Z79.899 Other long term (current) drug therapy; Z95.0 Presence of cardiac pacemaker; Z87.891 Personal history of nicotine dependence; Z85.46 Personal history of malignant neoplasm of prostate; Z98.42 Cataract extraction status, left eye; Z98.41 Cataract extraction status, right eye; Z90.79 Acquired absence of other genital organ(s); Z98.890 Other specified postprocedural states; Z80.3 Family history of malignant neoplasm of breast
CPT/HCPCS: 36415; 71046; 78452; 80053; 82565; 83690; 83735; 84484; 85025; 85610; 85730; 93005; 93017; 93306; 93458; 99285

== ENCOUNTER → 2020-02-14 | Outpatient (CLI) | payer BC, MEDICARE ==
--- NOTE | 2020-02-14 13:17 | CT ---
EXAMINATION TYPE: CT brain wo con DATE OF EXAM: 02/14/2020 HISTORY: CONFUSION CT DLP: 1064.3 mGycm. Automated Exposure Control for Dose Reduction was Utilized. TECHNIQUE: CT scan of the head is performed without contrast. COMPARISON: None FINDINGS: There is no acute intracranial hemorrhage, midline shift, or mass effect identified. There is diffuse volume loss. The ventricles, sulci, and cisterns are prominent in size concordant with volume loss. Patchy periventricular white matter hypodensities likely sequela of chronic microvascular ischemic ch shant. No extra-axial fluid collection. Bones and extracranial soft tissues are intact. The globes are gross ly symmetric. Postsurgical changes of the paranasal sinuses, with mucosal thickening of the ethmoid a ir cells. The mastoid air cells are clear. Soft tissue density within the bilateral external audito ry canals likely cerumen. IMPRESSION: 1. No acute intercranial hemorrhage, midline shift, or mass effect. 2. Diffuse volume loss. Patchy periventricular white matter hypodensities, likely sequela of chronic microvascular ischemic change.
== END | disposition home or self-care (01) ==
LOC: RADCTMAIN 10:59
PROVIDERS: ATTEND Internal Medicine
DX: R90.89 Other abnormal findings on diagnostic imaging of central nervous system (principal); F01.50 Vascular dementia, unspecified severity, without behavioral disturbance, psychotic disturbance, mood disturbance, and anxiety
CPT/HCPCS: 70450

== ENCOUNTER → 2020-03-20 | Outpatient (CLI) | payer BC, MEDICARE ==
--- NOTE | 2020-03-20 10:32 | US ---
EXAMINATION TYPE: US liver DATE OF EXAM: 03/20/2020 COMPARISON: 04/04/2016 CLINICAL HISTORY: 69-year-old male K76.0 Fatty liver. TECHNIQUE: Multiple sonographic images of the right upper quadrant are obtained. FINDINGS: EXAM MEASUREMENTS: Liver Length: 18.1 cm Gallbladder Wall: 0.1 cm CBD: 5.9 mm Right Kidney: 10.2 x 5.7 x 5.2 cm Pancreas: Suboptimal visualization of the pancreatic tail due to shadowing from bowel gas. Liver: Mildly enlarged with increased echogenicity in far field attenuation. No focal lesion seen. Gallbladder: Large in size = 11.5 x 4.6 x 5.3 cm. No wall thickening, shadowing calculi, or perichol ecystic fluid. Evidence for sonographic Aggarwal's sign: No CBD: Upper limits of normal in caliber. Right Kidney: No hydronephrosis. IMPRESSION: 1. Mild hepatomegaly (18.1 cm) with at least moderate hepatic steatosis. 2. Hydropic gallbladder measuring up to 11.5 cm long. Findings probably due to fasting state. No gall stones or ancillary findings of acute cholecystitis. 3. Bile duct borderline dilated at 5.9 mm, acceptable given patient's age.
== END | disposition home or self-care (01) ==
LOC: RADUSWWP 09:15
PROVIDERS: ATTEND Internal Medicine
DX: K76.0 Fatty (change of) liver, not elsewhere classified (principal); K82.8 Other specified diseases of gallbladder
CPT/HCPCS: 76705

== ENCOUNTER → 2020-04-07 | Outpatient (CLI) | payer BC, MEDICARE ==
--- NOTE | 2020-04-07 08:50 | NM ---
EXAMINATION TYPE: NM hepatobiliary w EF DATE OF EXAM: 04/07/2020 COMPARISON: NONE HISTORY: Pain TECHNIQUE: After the intravenous administration of 4.32 mCi Tc 99m Mebrofenin hepatobiliary scintigra phy is performed. Immediate images post injection. FINDINGS: There is satisfactory initial accumulation of tracer by the liver. The gallbladder is visualized wit hin 18 minutes. The small bowel activity is noted within minutes. At one hour 8 ounces of oral ensu re plus is given to mimic CCK and gallbladder ejection fraction is calculated at 89%. IMPRESSION: Consider hypercontractile state.
== END | disposition home or self-care (01) ==
LOC: RADNMMAIN 04-06 06:43
PROVIDERS: ATTEND Internal Medicine
DX: K30 Functional dyspepsia (principal)
CPT/HCPCS: 78226; A9537

== ENCOUNTER → 2020-08-24 | Outpatient (CLI) | payer BC, MEDICARE ==
--- NOTE | 2020-08-26 15:08 | P.ARTDOP ---
Arterial Doppler LOWER EXTREMITY ARTERIAL DOPPLER: DATE OF SERVICE: 08/24/2020 Reason for study: Suspected PVD. Doppler waveforms: Multiphasic bilaterally throughout with good toe waveforms. Pulse volume recording: []. Pressure gradients: None. Ankle-brachial indices: Greater than 1 bilaterally. Toe brachial indices: 0.78 on the right, 0.81 on the left Impression: Normal study.
== END | disposition home or self-care (01) ==
LOC: RADUSWWP 12:34
PROVIDERS: ATTEND Internal Medicine
DX: I73.9 Peripheral vascular disease, unspecified (principal); I10 Essential (primary) hypertension
CPT/HCPCS: 93922

== ENCOUNTER → 2021-01-29 | Outpatient (CLI) | payer BC, MEDICARE ==
[2021-01-29 09:09] LABS: African American GFR (CKD) >90 (>60 ml/min/1.73 sqM); Blood Urea Nitrogen 19 mg/dL (9-20); Non-African American GFR(CKD) 85 (>60 ml/min/1.73 sqM)
--- NOTE | 2021-01-29 09:48 | CT ---
EXAMINATION TYPE: CT brain wo/w con DATE OF EXAM: 01/29/2021 COMPARISON: 02/14/2020 HISTORY: Vascular dementia with behavioral disturbances CT DLP: [address] of the brain was performed. The ventricles, basal cisterns and sulci overlying the cerebral convexities demonstrate mild enlargem ent. There is no evidence for intracranial hemorrhage or sulcal effacement. There is decreased attenuation about the periventricular white matter and deep white matter of both c erebral hemispheres, compatible with chronic small vessel ischemia. Differential diagnosis does inclu de demyelination. No mass effects are seen.No midline shift. Osseous calvarium is intact. If symptoms persist consider MRI. IMPRESSION: 1. Age related atrophic and chronic small vessel ischemic change without acute intracranial process s een at this time.
== END | disposition home or self-care (01) ==
LOC: RADCTMAIN 08:23
PROVIDERS: ATTEND Psychiatry & Neurology Neurology
DX: I67.82 Cerebral ischemia (principal)
CPT/HCPCS: 82565; 84520; 70470; 36415; Q9967

== ENCOUNTER → 2021-11-19 | Outpatient (CLI) | payer BC, MEDICARE ==
[2021-11-19 18:08] LABS: African American GFR (CKD) 88.6 (60.0-200.0); Anion Gap 12.5 mmol/L (10.00-18.00); Blood Urea Nitrogen 18.4 mg/dL (9.0-27.0); Carbon Dioxide 24.5 mmol/L (20.0-27.5); Non-African American GFR(CKD) 76.5 (60.0-200.0); Potassium 4.4 mmol/L (3.5-5.5)
[2021-11-19 18:14] LABS: HCT 46.1 % (39.6-50.0); HGB 14.6 g/dL (13.0-17.0); MCH 29.5 pg (27.0-32.0); MCHC 31.7 g/dL (32.0-37.0); MCV 93.1 fL (80.0-97.0); Mean Platelet Volume 10.1 fL (9.5-12.2); NRBC Per 100 WBC 0 /100 WBCS (0.0-0.0); Platelet Count 217 X 10*3/uL (140-440); RBC 4.95 X 10*6/uL (4.40-5.60); RDW 15.3 % (11.5-14.5); WBC 7.48 X 10*3/uL (4.50-10.00)
== END | disposition home or self-care (01) ==
LOC: LABWHC1 13:18
PROVIDERS: ATTEND Internal Medicine Clinical Cardiac Electrophysiology
DX: Z01.812 Encounter for preprocedural laboratory examination (principal); I10 Essential (primary) hypertension; I44.2 Atrioventricular block, complete; R00.1 Bradycardia, unspecified
CPT/HCPCS: 36415; 80051; 82565; 84520; 85027

== ENCOUNTER 2021-12-13 14:01 | Day surgery (SDC) | payer BC, MEDICARE ==
[2021-12-08 13:00] VITALS: BMI 28.1
[~2021-12-13 14:01] MED LIST changes: -HYDROmorphone 0.5 MG/0.5 ML SYRINGE IVP PRN; -LACTATED RINGERS 1,000 ML IV SCH; -MORPHINE SULFATE 4 MG/ML SYRINGE IV PRN; -ONDANSETRON 4 MG/2 ML VIAL IVP PRN; -Pre Op ABX Message 1 EACH MISC MISCELLANE ONE; +SODIUM CHLORIDE 0.9% 1,000 ML IV SCH; +ceFAZolin 1 GM in SODIUM CHLORIDE 0.9% IRRIG BTL 250 ML IRRIGATION PRN
[2021-12-13 15:50] LABS: Glucose,Whole Blood 100 mg/dL (70-110)
[2021-12-13] MEDS ORDERED: ACETAMINOPHEN TAB 325 MG TAB PO PRN (17:33)
[2021-12-13] MEDS ORDERED: fentaNYL (PF) 50 MCG/ML 2 ML AMP ONE (17:34)
[2021-12-13] MEDS ORDERED: fentaNYL (PF) 50 MCG/ML 2 ML AMP IV ONE (17:39)
[2021-12-13] MEDS ORDERED: MIDAZOLAM 2 MG/2 ML VIAL IV ONE (17:39)
[2021-12-13] MEDS ORDERED: LIDOCAINE 1% INJ 10MG/ML (30 ML VIAL-PF) SQ ONE (17:42)
--- NOTE | 2021-12-13 18:13 | P.EPPROC ---
- EP Procedure Note Electrophysiology Procedure Note: Diagnosis Symptomatic bradycardia, complete heart block Procedure Dual-chamber pacemaker generator change Cine fluoroscopy of the leads Details Patient was brought to the EP lab in a fasting state. Written informed consent was obtained prior to the procedure. Conscious sedation provided. IV antibiotics administered. Local anesthesia administered. A 4 cm incision made in the pectoral area. Subfascial pocket was opened and the generator was explanted and a new generator was implanted Atrial lead position the right atrial appendage. Chronic position, 1. Cine fluoroscopy lead was in stable position no fractures or breaks P waves 3.2 mV, pacing threshold 0.5 V at 0.5 ms and pacing impedance of 540 ohms Medtronic lead RV lead position in the RV apex. Cine fluoroscopy showed lead to be in stable position the RV apex without fractures or breaks Medtronic lead No R waves. Pacemaker dependent patient. Pacing threshold 0.7 V 0.5 ms pacing impedance of 560 ohms Dual-chamber pacemaker device connected to the leads and placed in the subfascial pocket [employer], dual-chamber, Assurity MRI Patient tolerated the procedure well without acute complications Pacemaker programming DDDR 50
[2021-12-14] MEDS ORDERED: metFORMIN 500 MG TAB PO SCH (07:30)
[2021-12-14 08:05] VITALS: BP 129/70; PULSE 74; RESP 18; TEMP 98.1
[2021-12-14] MEDS ORDERED: ASPIRIN 81 MG PO SCH (09:00)
[2021-12-14] MEDS ORDERED: ATORVASTATIN 80 MG TAB PO SCH (09:00)
[2021-12-14] MEDS ORDERED: METOPROLOL SUCCINATE (ER) 50 MG TAB.ER.24H PO SCH (09:00)
[2021-12-14] MEDS ORDERED: lisinopriL 20 MG TAB PO SCH (09:00)
[2021-12-14] MEDS ORDERED: SPIRONOLACTONE 25 MG TAB PO SCH (09:00)
--- NOTE | 2021-12-14 11:22 | P.DS ---
Providers Attending physician: Luc Burris [facility] Course: Patient is doing well. No chest discomfort dizziness lightheadedness palpitations Minimal soakage of the pacemaker site dressing Heart sounds are normal normal S1 normal S2 Breath sounds are clear no rhonchi no crackles Impression Complete heart block Status post dual-chamber pacemaker in situ Pacemaker generator at [facility] Status post dual-chamber pacemaker generator change successfully yesterday IV antibiotics complete Plan Discharge home Continue current medications Follow-up in the device clinic in a week Plan - Discharge Summary Discharge Rx Participant: Yes New Discharge Prescriptions: Continue lisinopriL [Zestril] 20 mg PO DAILY Spironolactone [Aldactone] 25 mg PO DAILY Metoprolol Succinate (ER) [Toprol XL] 50 mg PO DAILY Aspirin EC [Ecotrin Low Dose] 81 mg PO DAILY #30 tablet. Dapagliflozin Propanediol [Farxiga] 5 mg PO DAILY icosapent ethyL [Vascepa] 1 gm PO HS Donepezil HCl [Aricept] 10 mg PO HS Memantine [Namenda] 10 mg PO BID metFORMIN HCL ER [Glucophage XR] 500 mg PO DAILY Rosuvastatin [Crestor] 40 mg PO DAILY Discharge Medication List Spironolactone [Aldactone] 25 mg PO DAILY 05/03/16 [History] lisinopriL [Zestril] 20 mg PO DAILY 05/03/16 [History] Metoprolol Succinate (ER) [Toprol XL] 50 mg PO DAILY 01/13/20 [History] Aspirin EC [Ecotrin Low Dose] 81 mg PO DAILY #30 tablet. 01/15/20 [Rx] Dapagliflozin Propanediol [Farxiga] 5 mg PO DAILY 12/13/21 [History] Donepezil HCl [Aricept] 10 mg PO HS 12/13/21 [History] Memantine [Namenda] 10 mg PO BID 12/13/21 [History] Rosuvastatin [Crestor] 40 mg PO DAILY 12/13/21 [History] icosapent ethyL [Vascepa] 1 gm PO HS 12/13/21 [History] metFORMIN HCL ER [Glucophage XR] 500 mg PO DAILY 12/13/21 [History] Follow up Appointment(s)/Referral(s): Luc Burris MD [STAFF PHYSICIAN] - 12/22/21 2:00 pm Scott Orellana MD [STAFF PHYSICIAN] - 1 Week (Device clinic follow-up in 1 week Follow-up with Dr. Orellana as previously scheduled) Patient Instructions/Handouts: Pacemaker Generator Change (DC) Activity/Diet/Wound Care/Special Instructions: DEVICE CLINIC @ DR. BURRIS OFFICE ON November @ 2PM.
== END 2021-12-14 11:55 | disposition home or self-care (01) ==
LOC: CATHEP 14:01 → 6NMEDSUR 17:57 → CATHEP 12-14 11:55
PROVIDERS: ATTEND Internal Medicine Clinical Cardiac Electrophysiology
DX: Z45.010 Encounter for checking and testing of cardiac pacemaker pulse generator [battery] (principal); I44.2 Atrioventricular block, complete; I25.10 Atherosclerotic heart disease of native coronary artery without angina pectoris; I10 Essential (primary) hypertension; F03.90 Unspecified dementia, unspecified severity, without behavioral disturbance, psychotic disturbance, mood disturbance, and anxiety; F17.210 Nicotine dependence, cigarettes, uncomplicated; I49.1 Atrial premature depolarization; E78.2 Mixed hyperlipidemia; Z20.822 Contact with and (suspected) exposure to COVID-19; Z95.5 Presence of coronary angioplasty implant and graft; Z79.899 Other long term (current) drug therapy; Z79.02 Long term (current) use of antithrombotics/antiplatelets; Z79.84 Long term (current) use of oral hypoglycemic drugs
CPT/HCPCS: 33228; 87635; C1785; J2250; J0690 ×2; J2001; J3010

== ENCOUNTER 2022-02-25 19:49 | Emergency (ER) | payer BC, MEDICARE ==
[2022-02-25 20:22] VITALS: TEMP 98.1
--- NOTE | 2022-02-25 20:38 | ED ---
Chest Pain HPI - General Chief Complaint: Chest Pain Stated Complaint: Chest pain Time Seen by Provider: 02/25/22 20:20 Source: patient Mode of arrival: ambulatory Limitations: no limitations - History of Present Illness Initial Comments: 71-year-old male with past history of A. fib, COPD, coronary artery disease, heart block with pacemaker who presents to the emergency room with reported chest pain. States that 5 hours prior to hospital arrival he began having chest pain. It only lasted a minute before it resolved. He describes it as a generalized chest pressure without radiation. Denies associated shortness of breath, diaphoresis or nausea. Denies that his pain was exertional. Denies calf pain or swelling. No history of heart failure. No history of DVT or PE. No fevers, chills or cough. He did not take any medications for his symptoms. No other alleviating, precipitating or modifying factors - Related Data Home Medications Medication Instructions Recorded Confirmed Spironolactone [Aldactone] 25 mg PO DAILY 05/03/16 02/25/22 lisinopriL [Zestril] 20 mg PO DAILY 05/03/16 02/25/22 Metoprolol Succinate (ER) [Toprol 50 mg PO DAILY 01/13/20 02/25/22 XL] Dapagliflozin Propanediol [Farxiga] 5 mg PO DAILY 12/13/21 02/25/22 Donepezil HCl [Aricept] 10 mg PO HS 12/13/21 02/25/22 Memantine [Namenda] 10 mg PO BID 12/13/21 02/25/22 metFORMIN HCL ER [Glucophage XR] 500 mg PO DAILY 12/13/21 02/25/22 Rosuvastatin Calcium [Crestor] 40 mg PO DAILY 02/25/22 02/25/22 icosapent ethyL [Icosapent Ethyl] 2 gm PO BID-W/MEALS 02/25/22 02/25/22 Previous Rx's Medication Instructions Recorded Aspirin EC [Ecotrin Low Dose] 81 mg PO DAILY #30 tablet. 01/15/20 Allergies Allergy/AdvReac Type Severity Reaction Status Date / Time No Known Allergies Allergy Verified 02/25/22 22:06 Review of Systems ROS Statement: Those systems with pertinent positive or pertinent negative responses have been documented in the HPI. ROS Other: All systems not noted in ROS Statement are negative. EKG Findings - EKG Comments: EKG Findings:: EKG demonstrates a paced rhythm with a rate of 101. HI interval 128. QRS 142. QTC of 431. Pacemaker captures appropriately. Negative for sgarbossa criteria. Past Medical History Past Medical History: Atrial Fibrillation, Asthma, Cancer, COPD, Diabetes Mellitus, Hearing Disorder / Deafness, Hyperlipidemia, Hypertension, Liver Disease, Memory Impairment, Prostate Disorder Additional Past Medical History / Comment(s): Hx prostate cancer at age 56. Hard of hearing. Short term memory impairment. History of Any Multi-Drug Resistant Organisms: None Reported Past Surgical History: Heart Catheterization With Stent, Pacemaker, Prostate Surgery, Tonsillectomy Additional Past Surgical History / Comment(s): Bilateral cataract surgery, colonoscopies, 1 stent. Past Anesthesia/Blood Transfusion Reactions: No Reported Reaction Date of Last Stent Placement:: 11/2020 Type of Cardiac Device: Permanent Pacemaker Device Placement Date:: 2012 or 2013 Past Psychological History: No Psychological Hx Reported Smoking Status: Former smoker Past Alcohol Use History: None Reported Past Drug Use History: None Reported - Past Family History Mother Family Medical History: Cancer Additional Family Medical History / Comment(s): Mother at age 84 from old age with history of breast cancer. Father Additional Family Medical History / Comment(s): Father at age 71 from old age. Patient has 2 brothers and 1 sister with no major medical problems. Patient has 3 children with no major medical problems. General Exam Limitations: no limitations General appearance: alert, in no apparent distress Head exam: Present: atraumatic, normocephalic, normal inspection Eye exam: Present: normal appearance, PERRL, EOMI. Absent: scleral icterus, conjunctival injection, periorbital swelling ENT exam: Present: normal exam, mucous membranes moist Neck exam: Present: normal inspection. Absent: tenderness, meningismus, lymphadenopathy Respiratory exam: Present: normal lung sounds bilaterally. Absent: respiratory distress, wheezes, rales, rhonchi, stridor Cardiovascular Exam: Present: regular rate, normal rhythm, normal heart sounds. Absent: systolic murmur, diastolic murmur, rubs, gallop, clicks GI/Abdominal exam: Present: soft, normal bowel sounds. Absent: distended, tenderness, guarding, rebound, rigid Extremities exam: Present: normal inspection, full ROM, normal capillary refill. Absent: tenderness, pedal edema, joint swelling, calf tenderness Back exam: Present: normal inspection Neurological exam: Present: alert, oriented X3, CN II-XII intact Psychiatric exam: Present: normal affect, normal mood Skin exam: Present: warm, dry, intact, normal color. Absent: rash Course Vital Signs 02/25/22 02/25/22 02/25/22 20:18 20:44 21:00 Temperature 98.1 F Pulse Rate 107 H 101 H 103 H Respiratory 16 18 16 Rate Blood Pressure 134/73 115/71 115/71 O2 Sat by Pulse 98 94 L 94 L Oximetry 02/25/22 02/25/22 22:00 22:15 Temperature Pulse Rate 97 96 Respiratory 16 18 Rate Blood Pressure 119/71 130/72 O2 Sat by Pulse 94 L 94 L Oximetry Chest Pain MDM - MDM Upon arrival patient is placed into room 5. Thorough history and physical exam is performed. Patient is symptom-free at this time. Laboratory studies are conducted and reviewed. Troponin negative. Chest x-ray demonstrates no acute process. Results are discussed with the patient. I did recommend admission however patient refused. I did discuss the limitations of the evaluation the emergency room for which the patient was aware. He is aware of the risks of leaving without further evaluation to include permanent disability and even . Patient like to be discharged. 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 Return to the emergency room for any new or worsening symptoms. Patient was agreeable and discharged home in stable condition Disposition Clinical Impression: Chest pain Disposition: HOME SELF-CARE Condition: Stable Instructions (If sedation given, give patient instructions): Chest Pain (ED) Additional Instructions: Please call and make an appointment with your building supplies salesperson retail. If they cannot see you next week, see your primary care doctor. Inform them that you had chest pain. Return for any new or worsening symptoms Is patient prescribed a controlled substance at d/c from ED?: No Referrals: Jess Chaney MD [Primary Care Provider] - 1-2 days Time of Disposition: 22:17
[2022-02-25 21:04] LABS: Basophils # (A) 0.1 k/uL (0-0.2); Basophils % (A) 1 %; Eosinophils # (A) 0.5 k/uL (0-0.7); Eosinophils % (A) 6 %; HCT 45.2 % (39.0-53.0); HGB 15.5 gm/dL (13.0-17.5); Lymphocytes % (A) 24 %; MCH 31.6 pg (25.0-35.0); MCHC 34.3 g/dL (31.0-37.0); Mean Platelet Volume 7.5; Monocytes # (A) 0.8 k/uL (0-1.0); Monocytes % (A) 9 %; Neutrophils # (A) 4.8 k/uL (1.3-7.7); Neutrophils % (A) 58 %; Platelet Count 193 k/uL (150-450); RBC 4.92 m/uL (4.30-5.90); RDW 13.4 % (11.5-15.5); WBC 8.3 k/uL (3.8-10.6)
[2022-02-25 21:11] LABS: Partial Thromboplastin Time 24.1 sec (22.0-30.0); Prothrombin Time 11.1 sec (9.0-12.0)
[2022-02-25 21:16] LABS: ALT 27 U/L (4-49); AST 35 U/L (17-59); African American GFR (CKD) >90 (>60 ml/min/1.73 sqM); Albumin 4.4 g/dL (3.5-5.0); Alkaline Phosphatase 73 U/L (38-126); Anion Gap 12 mmol/L; Blood Urea Nitrogen 17 mg/dL (9-20); Calcium 9.5 mg/dL (8.4-10.2); Carbon Dioxide 26 mmol/L (22-30); Chloride 102 mmol/L (98-107); Glucose 129 mg/dL (74-99); Lipase 340 U/L (23-300); Non-African American GFR(CKD) 80 (>60 ml/min/1.73 sqM); Potassium 4.5 mmol/L (3.5-5.1); Sodium 140 mmol/L (137-145); Total Bilirubin 0.5 mg/dL (0.2-1.3); Total Protein 7.4 g/dL (6.3-8.2)
--- NOTE | 2022-02-25 21:53 | XR ---
EXAMINATION TYPE: XR chest 2V DATE OF EXAM: 02/25/2022 COMPARISON: 01/12/2020 HISTORY: Chest pain TECHNIQUE: 2 views FINDINGS: Heart is normal. Lungs are clear of consolidation. There are no hilar masses. There is left axillary pacemaker. No pleural effusion. Bony thorax is intact. IMPRESSION: No active cardiopulmonary disease. No change.
[2022-02-25 22:48] VITALS: BP 130/72; PULSE 96; RESP 18
== END 2022-02-25 22:15 | disposition home or self-care (01) ==
LOC: EC 19:49
DX: R07.9 Chest pain, unspecified (principal); I48.91 Unspecified atrial fibrillation; J44.9 Chronic obstructive pulmonary disease, unspecified; E11.9 Type 2 diabetes mellitus without complications; E78.5 Hyperlipidemia, unspecified; I10 Essential (primary) hypertension; Z87.891 Personal history of nicotine dependence; Z79.82 Long term (current) use of aspirin; Z79.84 Long term (current) use of oral hypoglycemic drugs; Z79.899 Other long term (current) drug therapy
CPT/HCPCS: 36415; 71046; 80053; 83690; 83735; 83880; 84484; 85025; 85610; 85730; 93005; 99285